=== PATIENT | female | born 2000 | race Two or more races ===

== ENCOUNTER 2025-05-16 16:02 | Emergency (ER) | payer OTHER ==
[~2025-05-16] VITALS: Ht 165.1 cm; Wt 104.3 kg
[2025-05-16 16:48] LABS: BASO % 0.8 % (0.1-1.2); EOS # 0.21 (0.04-0.54); EOS % 2.5 % (0.7-7.0); LYMPH # 2.20 (1.18-3.74); LYMPH % 25.8 % (19.3-53.1); MEAN PLATELET VOLUME 9.70 fl (9.4-12.4); MONO # 0.59 (0.24-0.82); MONO % 6.9 % (4.7-12.5); NEUT # 5.45 (1.56-6.13); NEUT % 63.8 % (34.0-71.1); RED CELL DISTRIBUTION WIDTH 15.4 % (11.6-14.4)
[2025-05-16 17:18] LABS: INR 0.98
[2025-05-16 17:42] LABS: ALT/SGPT 22.0 U/L (12-78); AST/SGOT 16.0 U/L (15-37); BILIRUBIN TOTAL 0.17 mg/dL (0.3-1.2); BUN CREA RATIO 13.0 (7.0-25.0); CREATININE SERUM 0.7 mg/dL (0.55-1.02); GFR 103.69; GLOBULINA 3.4 G/DL (2.4-3.5); GLUCOSE FASTING 105.0 mg/dL (65-100); HCG QUANTITATIVE 10.0 mUI/mL (1-3); OSMOLALITY SERUM 282.0 MOSM/KG (275-295)
[2025-05-16 17:59] LABS: URINE APPEARANCE Clear; URINE BILIRRUBIN Negative (NEGATIVE); URINE BLOOD Large; URINE COLOR Yellow; URINE GLUCOSE Negative (NEGATIVE); URINE KETONE Negative (NEGATIVE); URINE LEUKOCYTE Trace; URINE NITRATE Negative; URINE PROTEIN Trace (NEGATIVE); URINE UROBILINOGEN 0.2 E.U./dl
[2025-05-16 18:02] LABS: URINE EPITHELIAL CELLS 26.6 uL (0.0-38.8); URINE RBC 57.4 uL (0.0-20.8); URINE WBC 13.0 uL (0.0-23.2)
[2025-05-16 18:28] LABS: URINE CAST 0.14 uL (0.0-1.40)
== END 2025-05-16 20:37 | disposition home or self-care (01) ==
LOC: ER 16:03
DX: O20.8 Other hemorrhage in early pregnancy (principal); Z3A.00 Weeks of gestation of pregnancy not specified

== ENCOUNTER → 2025-06-02 | Emergency (ER) | payer OTHER ==
[~2025-06-02] VITALS: Ht 165.1 cm; Wt 104.3 kg
[~2025-06-02] MED LIST: 0.9 % SODIUM CHLORIDE 1,000 ML IV ONE; KETOROLAC TROMETHAMINE 30 MG VIAL IU ONE
[2025-06-02 08:36] LABS: BASO % 1.0 % (0.1-1.2); EOS # 0.15 (0.04-0.54); EOS % 1.7 % (0.7-7.0); LYMPH # 1.74 (1.18-3.74); LYMPH % 19.5 % (19.3-53.1); MEAN PLATELET VOLUME 10.30 fl (9.4-12.4); MONO # 0.53 (0.24-0.82); MONO % 5.9 % (4.7-12.5); NEUT # 6.38 (1.56-6.13); NEUT % 71.5 % (34.0-71.1); RED CELL DISTRIBUTION WIDTH 15.1 % (11.6-14.4)
[2025-06-02 08:43] LABS: URINE APPEARANCE Clear; URINE BILIRRUBIN Negative (NEGATIVE); URINE BLOOD Negative; URINE COLOR Yellow; URINE GLUCOSE Negative (NEGATIVE); URINE KETONE Negative (NEGATIVE); URINE LEUKOCYTE Negative; URINE NITRATE Negative; URINE PROTEIN Negative (NEGATIVE); URINE UROBILINOGEN 0.2 E.U./dl
[2025-06-02 08:49] LABS: URINE BACTERIA 127.2 uL (0.0-1933); URINE EPITHELIAL CELLS 7.6 uL (0.0-38.8)
[2025-06-02 08:52] LABS: URINE CAST 0.00 uL (0.0-1.40); URINE RBC 0.7 uL (0.0-20.8); URINE WBC 0.4 uL (0.0-23.2)
[2025-06-02 09:02] LABS: ALT/SGPT 25 U/L (12-78); AST/SGOT 17 U/L (15-37); BILIRUBIN TOTAL 0.42 mg/dL (0.3-1.2); BILIRUBIN,CONJUGATED < 0.10 mg/dL (0.0-0.2); BUN CREA RATIO 15 (7.0-25.0); CREATININE SERUM 0.62 mg/dL (0.55-1.02); GFR 118.26; GLUCOSE FASTING 99 mg/dL (65-100); OSMOLALITY SERUM 278 MOSM/KG (275-295)
[2025-06-02 09:03] LABS: HCG QUANTITATIVE < 1 mUI/mL (1-3)
== END | disposition home or self-care (01) ==
LOC: ER 06:06
PROVIDERS: Emergency Medicine
DX: O90.89 Other complications of the puerperium, not elsewhere classified (principal); R10.31 Right lower quadrant pain